=== PATIENT | male | born 1995 | race Two or more races ===

== ENCOUNTER 2016-06-01 21:17 | Emergency (ER) | payer OTHER ==
[~2016-06-01] VITALS: Ht 167.6 cm; Wt 74.4 kg
--- NOTE | 2016-06-01 21:50 | Emergency Room Report ---
History of Present Illness General Chief Complaint: Laceration Source: Patient Present Illness HPI Patient present with complaints of injury to the left hand Patient was cutting oysters essentially opening them with a knife when he sustained a puncture-type wound to the left hand Involved the thenar eminence also the mid part of the palmar hand This occurred approximately 6:00 this evening patient presents for further evaluation Has minimal discomfort at the area Denies any other injury to the wrist or elbow unknown regarding his tetanus Allergies: Coded Allergies: No Known Allergies (Unverified , 06/01/16) Patient History Past Medical History: see triage record Pertinent Family History: none Reviewed Nursing Documentation: PMH: Agreed, PSxH: Agreed Nursing Documentation-PMH Past Medical History: No Stated History Review of Systems All Other Systems: negative except mentioned in HPI Physical Exam Vital Signs Date Time Temp Pulse Resp B/P Pulse Ox O2 Delivery O2 Flow Rate FiO2 06/01/16 21:40 98.1 63 14 132/74 99 Room Air Sp02 EP Interpretation: reviewed, normal General Appearance: well appearing, no apparent distress Head: normocephalic, atraumatic Eyes: bilateral eye EOMI, bilateral eye PERRL ENT: normal pharynx, no angioedema Gastrointestinal: soft, no mass Musculoskeletal: normal inspection Neurologic: alert, oriented x3, responsive Skin: other - O2 sats of appear to be puncture wound, one area in the thenar eminence on the left hand, the other is in the mid palmar aspect, the thenar eminence appears to have some surrounding erythema, both areas have already scabbed over and secondary healing Lymphatic: no adenopathy Medical Decision Making Diagnostic Impression: Primary Impression: Puncture wound ER Course Patient presents with puncture wounds The areas already been previously cleansed in the ER at this time scabbing over The ER and this has had erythema and concern for early cellulitis Patient was given tetanus here along with initial antibiotic dose No further intervention was required regarding he punctured areas And the patient requires close outpatient follow, Last Vital Signs Date Time Temp Pulse Resp B/P Pulse Ox O2 Delivery O2 Flow Rate FiO2 06/01/16 21:40 98.1 63 14 132/74 99 Room Air Status: improved Disposition: HOME, SELF-CARE Condition: Stable Scripts Cephalexin* (KEFLEX*) 500 Mg Capsule 500 MG ORAL Q6H, #28 CAP 0 Refills Prov: JAMEHDOR,ALI D.O. 06/01/16 Additional Instructions: Patient is provided with the discharge instructions notified to follow up with primary doctor in the next 2-3 days otherwise return to the er with any worsening symptoms. CLEMENTINA FONSECA D.O. Jun 01, 2016 21:50
[2016-06-01] MEDS ORDERED: KEFLEX500 MG ORAL (21:53)
[2016-06-01] MEDS ORDERED: TdaP Vaccine 0.5ml Syr IM ONE (22:00)
[2016-06-01] MEDS ORDERED: Cephalexin 500mg cap ORAL ONE (22:00)
[2016-06-01 22:07] VITALS: BP 132/74
== END 2016-06-01 22:08 | disposition home or self-care (01) ==
LOC: EMR 21:56
DX: S61.432A Puncture wound without foreign body of left hand, initial encounter (principal); W26.0XXA Contact with knife, initial encounter; Y92.59 Other trade areas as the place of occurrence of the external cause; Y99.0 Civilian activity done for income or pay; Z23 Encounter for immunization
CPT/HCPCS: 90471; 90715; 99283